=== PATIENT | male | born 1995 | race Two or more races ===

== ENCOUNTER 2021-03-27 00:37 | Emergency (ER) | payer MEDICARE, MEDICAID ==
[~2021-03-27] VITALS: Ht 205.7 cm; Wt 159.1 kg
[~2021-03-27 00:37] MED LIST: ARIP10TA15 PO; AZIT500T9 PO; CARB15DR65 EACH EAR; ESCI20TA39 PO; MINO100T PO; PANT-47 PO; RISP0.5T74 PO
[2021-03-27 00:50] VITALS: BP 135/87
[2021-03-27] MEDS ORDERED: acetaminophen 325mg tablet PO ONE (01:25)
== END 2021-03-27 03:43 | disposition left against medical advice (07) ==
LOC: ER 00:38
DX: R00.1 Bradycardia, unspecified (principal); Z53.21 Procedure and treatment not carried out due to patient leaving prior to being seen by health care provider

== ENCOUNTER 2021-10-22 20:54 | Emergency (ER) | payer MEDICARE, MEDICAID ==
[~2021-10-22] VITALS: Ht 205.7 cm; Wt 159.1 kg
[2021-10-22 21:06] VITALS: BP 144/99
== END 2021-10-22 22:03 | disposition home or self-care (01) ==
LOC: ER 20:55
DX: H93.231 Hyperacusis, right ear (principal); H72.91 Unspecified perforation of tympanic membrane, right ear; J45.909 Unspecified asthma, uncomplicated; K21.9 Gastro-esophageal reflux disease without esophagitis; Z88.1 Allergy status to other antibiotic agents; Z79.2 Long term (current) use of antibiotics; Z79.899 Other long term (current) drug therapy
CPT/HCPCS: 99281; 99282